=== PATIENT | male | born 1965 | race African-American/Black ===

== ENCOUNTER 2019-11-21 17:09 | Inpatient (IN) ==
[2019-11-21] MEDS ORDERED: ALBUTEROL NEB INH ONE (18:19)
[2019-11-21 18:28] LABS: URINE SOURCE CLEAN CATCH
[2019-11-21 18:37] LABS: BASO# 0.11 X1000 (0.0-0.2); EOS# 0.03 X1000 (0.0-0.7); EOS% 0.3 % (0.0-10.0); HEMATOCRIT 44.7 % (42.0-52.0); HEMOGLOBIN 14.6 g/dL (14.0-18.0); IMM GRAN# 0.93 X1000 (0.0-0.04); IMM GRAN% 8.3 % (0.0-0.5); LYMPH# 1.22 X1000 (1.2-3.4); LYMPH% 10.9 % (20.5-51.1); MCH 27.3 PG (27-31); MCHC 32.7 g/dL (33-37); MCV 83.6 FL (81-99); MONO# 0.81 X1000 (0.11-0.59); MONO% 7.2 % (1.7-9.3); MPV 9.5 FL (7.4-10.4); NEUT# 8.09 X1000 (1.4-6.5); NEUT% 72.3 % (42.2-75.2); PLT 162 X1000 (130-400); RBC 5.35 XMIL (4.7-6.1); RDW 17.3 % (11.5-14.5); WBC 11.19 X1000 (4.8-10.8)
[2019-11-21 18:37] LABS: BILIRUBIN URINE NEGATIVE (NEGATIVE); BLOOD URINE NEGATIVE (NEGATIVE); COLOR YELLOW; GLUCOSE URINE NEGATIVE (NEGATIVE); KETONE URINE NEGATIVE (NEGATIVE); LEUKOCYTES URINE SMALL (NEGATIVE); NITRITE URINE NEGATIVE (NEGATIVE); PH URINE 5.5; PROTEIN URINE TRACE mg/dL (NEGATIVE); SP GRAVITY URINE 1.027; TURBIDITY URINE HAZY (CLEAR); UROBILINOGEN URINE NORMAL (NORMAL)
[2019-11-21 18:38] LABS: UR EPITHELIAL CELLS <10 /HPF (<10); URINE BACTERIA NEGATIVE /HPF; URINE RBC <10 /HPF (<10); URINE WBC <10 /HPF (<10)
[2019-11-21 18:43] LABS: URINE CRYSTALS CA OXALATE PRESENT
--- NOTE | 2019-11-21 18:52 | Diag Imaging Result Doc PS360 ---
EXAM: CHEST-1 VIEW HISTORY: cough TECHNIQUE: Single view COMPARISON: 06/13/2018 FINDINGS: The lungs are well expanded. The heart is not enlarged. The vessels are not distended. There are right middle lobe infiltrates. No effusion identified. IMPRESSION: Small right middle lobe infiltrates Electronically signed by Abdias Larry 11/21/2019 6:50 PM
[2019-11-21 18:58] LABS: AGAP 14; ALB/GLOB RATIO 1.8; ALBUMIN 3.9 g/dL (3.5-5.0); ALKALINE PHOSPHATASE 57 U/L (32-122); BUN 31 mg/dL (8-22); CALCIUM 9.1 mg/dL (8.8-10.2); CHLORIDE 105 mmol/L (98-107); COSMO 288; CREATININE 0.7 mg/dL (0.7-1.2); ESTIMATED GFR > 60; GLUCOSE 111 mg/dL (70-104); GOT 16 U/L (10-34); GPT 41 U/L (10-44); POTASSIUM 4.4 mmol/L (3.5-5.1); SODIUM 141 mmol/L (136-145); TCO2 22 mmol/L (25-35); TOTAL PROTEIN 6.1 g/dL (6.3-8.3)
[2019-11-21] MEDS ORDERED: LEVAQUIN 750 MG/D5W 750 MG/150 ML IVPB IV ONE (19:44)
[2019-11-21] MEDS ORDERED: NS 1,000 ML IV ONE (19:56)
[2019-11-21] MEDS ORDERED: DECADRON IV ONE (19:56)
--- NOTE | 2019-11-21 19:56 | PROVIDER DOCUMENTATION ---
This chart was entered by Michaela Ron Scribe, acting as scribe for oDmingo Winchester MD. HPI-Syncope/Dizziness - General Chief Complaint: Dizziness Stated Complaint: DIZZINESS Time Seen by Provider: 11/21/19 18:17 Source: patient, EMS Allergies/Adverse Reactions: Patient Allergies Allergy/AdvReac Type Severity Reaction Status Date / Time No Known Allergies Allergy Verified 07/05/18 12:32 Home Medications: Home Medication List Medication Instructions Recorded Confirmed Last Taken Type Amitriptyline HCl 25 mg PO QHS 11/21/19 11/21/19 Unknown History Amitriptyline HCl 50 mg PO QHS 11/21/19 11/21/19 Unknown History Amlodipine Besylate 5 mg PO DAILY 11/21/19 11/21/19 Unknown History Dexamethasone 2 mg PO BID 11/21/19 11/21/19 Unknown History LISINOpril [Prinivil] 20 mg PO DAILY 11/21/19 11/21/19 Unknown History Levetiracetam 500 mg PO BID 11/21/19 11/21/19 Unknown History Levofloxacin [Levaquin] 750 mg PO DAILY #7 tab 11/21/19 Unknown Rx Melatonin 3 mg PO HS PRN 11/21/19 11/21/19 Unknown History Methimazole [Tapazole] 15 mg PO DAILY 11/21/19 11/21/19 Unknown History Omeprazole [Prilosec] 20 mg PO DAILY 11/21/19 11/21/19 Unknown History Paroxetine HCl 40 mg PO DAILY 11/21/19 11/21/19 Unknown History - History of Present Illness-Syncope/Dizzy Nature of Presenting Problem: Pt is a 54 yom brought into the Ed by EMS with c/o of dizziness and generalized weakness. Pt recently had radiation treatment for brain cancer in [place] but has been discharged to home. Pt has a hx of left sided weakness. Pt's family wanted him assessed in ED. Pt is A&O x3 in ED. Onset/Duration: reports: abrupt, 24 hours ago Timing: reports: still present Symptoms prior to episode: reports: lightheaded Context: reports: felt faint Loss of Consciousness: no loss of consciousness Location of injury. (If syncope resulted in an injury.): reports: none Current Symptoms: reports: weakness, dizzy Recently Seen Here or By Another Healthcare Provider: Yes ([place] radiation treatment) - Dizziness Severity in ED: reports: mild Dizziness Related Current/Associated Symptoms: reports: dizzy Any recent trauma/injury?: reports: none Modifying Factors: improves with: changing position Patient usually:: reports: walks without assistance Review of Systems - Adult - REVIEW OF SYSTEMS - ADULT Constitutional: denies: chills, fever Eyes: reports: no symptoms reported Ears, Nose, Mouth & Throat: reports: no symptoms reported Cardiovascular: denies: chest pain, syncope Respiratory: denies: cough Gastrointestinal: reports: diarrhea, vomiting. denies: abdominal pain Genitourinary: reports: no symptoms reported Musculoskeletal: reports: no symptoms reported Integumentary: reports: no symptoms reported Neurological: reports: see HPI, dizziness/vertigo Psychiatric: reports: no symptoms reported Endocrine: reports: no symptoms reported Hematologic/Lymphatic: reports: no symptoms reported Allergic/Immunologic: reports: no symptoms reported All Other Systems: Reviewed and Negative Past History - Adult - PAST MEDICAL HISTORY-ADULT Review of Records: reports: Old Records Reviewed, Nursing Assessment Review, Medications Reviewed, Social history reviewed & non-contributory. Major Childhood Illnesses: reports: denies history Cardiovascular: reports: CHF, HTN Respiratory: reports: denies history Gastrointestinal: reports: denies history Obstetrical/Gynecological: reports: denies history Genitourinary: reports: denies history Musculoskeletal: reports: denies history Neurological: reports: other (cancer) Endocrine/Immune: reports: Diabetes Other Conditions: reports: denies history - IMMUNIZATION STATUS Childhood Immunizations: See Nurse Assessment Flu Vaccine: See Nurse Assessment - FAMILY HISTORY Family History: reviewed, not pertinent - SOCIAL HISTORY Smoking: cigarettes, greater than 1 pack/day Provider spent 3-5 mins advising pt. on dangers of tobacco.: Discussed manners to quit use, and f/u contacts for add'l counseling. Substance Use: denies Living Situation: family Physical Exam-General - PHYSICAL EXAM-ADULT Initial Vital Signs Reviewed: Yes - CONSTITUTIONAL General Appearance: appears well, alert, no apparent distress, thin - EYES Eyes: PERRL/EOMI, pink conjunctivae - HEAD, EARS, NOSE, MOUTH & THROAT HENMT: normocephalic/atraumatic, moist mucous membranes, normal ENT inspection - NECK Neck: non-tender, full range of motion, supple - RESPIRATORY Respiratory: chest non-tender, rhonchi (on expiration) - CARDIOVASCULAR Cardiovascular: normal peripheral pulses - GASTROINTESTINAL (ABDOMEN) Abdominal Exam: normal bowel sounds, non tender, soft - LYMPHATIC Lymphatic: no adenopathy - MUSCULOSKELETAL Back Exam: normal inspection, no CVA tenderness, no vertebral tenderness Extremity: non-tender, no pedal edema, no calf tenderness - SKIN Integumentary: normal color, normal turgor, warm/dry - NEUROLOGIC Neurologic: grossly normal - PSYCHIATRIC Psych/Mental Status: normal mood/affect, normal thought content, normal thought process, oriented x 3 Progress - PLAN OF CARE/RESULTS Progress/Plan/Lab Results: Vital Signs - 8 hr 11/21/19 17:09 11/21/19 17:22 11/21/19 18:00 Temperature 97.9 F 99.8 F H Pulse Rate 96 H 93 H Respiratory Rate 17 23 Blood Pressure 108/74 118/81 O2 Sat by Pulse Oximetry 96 98 11/21/19 18:32 11/21/19 19:00 Temperature Pulse Rate 91 H 95 H Respiratory Rate 18 13 Blood Pressure 117/80 O2 Sat by Pulse Oximetry 96 11/21/19 17:42 Influenza Screen - Final Nasopharyngeal 11/21/19 17:42 Group A Strep Rapid Antigen - Final Throat Laboratory Results - last 24 hr 11/21/19 11/21/19 11/21/19 17:46 17:46 17:46 WBC RBC Hgb Hct MCV MCH MCHC RDW Std Deviation Plt Count MPV Immature Gran % (Auto) Neut % (Auto) Lymph % (Auto) [place] % (Auto) Eos % (Auto) Baso % (Auto) Immature Gran # (Auto) Neut # (Auto) Lymph # (Auto) [place] # (Auto) Eos # (Auto) Baso # (Auto) Sodium 141 Potassium 4.4 Chloride 105 Carbon Dioxide 22 L Anion Gap 14 BUN 31 H Creatinine 0.7 Estimated GFR/1.73 m2 > 60 BUN/Creatinine Ratio 44 Glucose 111 H Calculated Osmolality 288 Calcium 9.1 Total Bilirubin 0.20 AST 16 ALT 41 Alkaline Phosphatase 57 Troponin T High Sens Cdz-S-Ickzqphygjo Pept 6 Total Protein 6.1 L Albumin 3.9 Globulin 2.2 Albumin/Globulin Ratio 1.8 Plasma Lactate 1.7 Urine Source Urine Color Urine Turbidity Urine pH Ur Specific [place] Urine Protein Ur Glucose (Stick) Ur Ketones (Stick) Urine Blood Urine Nitrite Urine Bilirubin Urobilinogen Dipstick Urine Leukocytes Urine WBC (Auto) Urine RBC (Auto) U Epithel Cells (Auto) Urine Bacteria (Auto) Urine Crystals Small Round Cells Urine Casts Urine Yeast-like Cells 11/21/19 11/21/19 11/21/19 17:46 17:46 17:52 WBC 11.19 H RBC 5.35 Hgb 14.6 Hct 44.7 MCV 83.6 MCH 27.3 MCHC 32.7 L RDW Std Deviation 17.3 H Plt Count 162 MPV 9.5 Immature Gran % (Auto) 8.3 H Neut % (Auto) 72.3 Lymph % (Auto) 10.9 L [place] % (Auto) 7.2 Eos % (Auto) 0.3 Baso % (Auto) 1.0 H Immature Gran # (Auto) 0.93 H Neut # (Auto) 8.09 H Lymph # (Auto) 1.22 [place] # (Auto) 0.81 H Eos # (Auto) 0.03 Baso # (Auto) 0.11 Sodium Potassium Chloride Carbon Dioxide Anion Gap BUN Creatinine Estimated GFR/1.73 m2 BUN/Creatinine Ratio Glucose Calculated Osmolality Calcium Total Bilirubin AST ALT Alkaline Phosphatase Troponin T High Sens 13 Dpb-M-Kayglurlrrx Pept Total Protein Albumin Globulin Albumin/Globulin Ratio Plasma Lactate Urine Source CLEAN CATCH Urine Color YELLOW Urine Turbidity HAZY Urine pH 5.5 Ur Specific [place] 1.027 Urine Protein TRACE A Ur Glucose (Stick) NEGATIVE Ur Ketones (Stick) NEGATIVE Urine Blood NEGATIVE Urine Nitrite NEGATIVE Urine Bilirubin NEGATIVE Urobilinogen Dipstick NORMAL Urine Leukocytes SMALL A Urine WBC (Auto) <10 Urine RBC (Auto) <10 U Epithel Cells (Auto) <10 Urine Bacteria (Auto) NEGATIVE Urine Crystals CA OXALATE PRESENT Small Round Cells Not Reportable Urine Casts Not Reportable Urine Yeast-like Cells Not Reportable Orders Category Date Time Status NEWS Score 2-4:Order NEWS Lactate Series NOW Care 11/21/19 18:19 Active Saline Loc NOW Care 11/21/19 18:19 Active CHEST-1 VIEW [RAD] Stat Exams 11/21/19 18:19 Completed CBC WITH ELECTRONIC DIFF [HEME] Stat Lab 11/21/19 17:46 Completed COMPREHENSIVE METABOLIC PANEL [CHEM] Stat Lab 11/21/19 17:46 Completed DIRECT STREP Stat Lab 11/21/19 17:42 Completed INFLUENZA SCREEN A/B Stat Lab 11/21/19 17:42 Completed LACTATE, PLASMA [CHEM] Lab 11/21/19 21:30 Uncollected LACTATE, PLASMA [CHEM] Lab 11/22/19 00:30 Uncollected LACTATE, PLASMA [CHEM] Q3H Lab 11/21/19 17:46 Completed PRO B-NATRIURETIC PEPTIDE Stat Lab 11/21/19 17:46 Completed TROPONIN T HIGH SENSITIVITY Stat Lab 11/21/19 17:46 Completed URINALYSIS W/POSS RFLX CULT [URINALYSIS] Stat Lab 11/21/19 17:52 Completed URINE CULTURE [RM] Routine Lab 11/21/19 17:52 Received URINE MANUAL MICROSCOPIC [URINALYSIS] Stat Lab 11/21/19 17:52 Completed Albuterol [Albuterol Neb] Med 11/21/19 18:19 Discontinued 2.5 mg INH NOW ONE Levaquin 750 mg/D5w IV Now Med 11/21/19 19:44 Ordered Levofloxacin 750 mg/D5w [Levaquin 750 mg/D5w] 750 mg in 150 ml IV NOW Aerosol Treatments Routine Oth 11/21/19 18:19 Completed Aerosol Treatments Stat Oth 11/21/19 18:19 Completed EKG [EKG] Stat Ther 11/21/19 18:19 Ordered Result Diagrams: 11/21/19 17:46 11/21/19 17:46 - XRAY 1 XRAY Study: Chest Impression: See EMR Report ( Department of Imaging Patient: CRISTINA WHITNEY EADM Date: 11/21/19MR#: [id number] : 1965[facility] [id number] Age/Sex: 54/MRoom/Bed: Loc: ED Ordering Physician: Domingo Winchester MD Family Physician: None,PCP Reason for Procedure: cough Signed EXAM: CHEST-1 VIEW HISTORY: cough TECHNIQUE: Single view COMPARISON: 06/13/2018 FINDINGS: The lungs are well expanded. The heart is not enlarged. The vessels are not distended. There are right middle lobe infiltrates. No effusion identified. IMPRESSION: Small right middle lobe infiltrates Electronically signed by Abdias Larry 11/21/2019 6:50 PM 11/21/19 1850 Interpreting Physician: Abdias Larry MD Dictated Date/Time: 11/21/19 1849 cc: Domingo Winchester MD; None,PCP) Departure - Departure Date of Disposition Decision: 11/21/19 Time of Disposition Decision: 19:52 DIAGNOSIS: Pneumonia, Brain cancer, Radiotherapy Disposition: HOME 01 Certified Medical Emergency: Emergent Condition: Stable Additional Instructions: ED Follow Up Instructions: You have been treated by a care provider in the Emergency Department. These instructions are being provided to you so you can have an understanding of how to care for yourself upon discharge. [facility] you are responsible for making arrangements for follow-up care by a physician of your choice. Take all prescribed medications as directed. Take your antibiotics, follow with your pmd for further management Return to the Emergency Department immediately for any new or worsening symptoms. You may call the Physician Referral phone number at [phone] to obtain a list of Physicians who are taking new patients. Prescriptions: Levofloxacin [Levaquin] 750 mg PO DAILY #7 tab Prescription Printed Referrals and Follow-Ups: None,PCP [Primary Care Provider] - Discharge Education: Community-Acquired Pneumonia, Adult, [id number] - Critical Care Note This patient required my direct & personal management of CC.: No Attestation - Physician/ SILAS Attestation Patient care was provided by Advanced Practice Provider:: No The physician spent face to face time with patient:: Yes Advanced Practice Provider documentation review:: Supervising physician onsite and consulted in the evaluation and care of this patient. The physician did have a face to face encounter with the patient. This chart was documented by the indicated scribe, (Michaela Ron, [place]) and accurately reflects the services I performed and decisions made by me, Domingo Winchester MD, as attested by the provider's signature.
--- NOTE | 2019-11-21 21:44 | EKG Report ---
Test Performed on : 11/21/2019 8:01:26 PM Test Reason : weakness Blood Pressure : / mmHG Vent. Rate : 078 BPM Atrial Rate : 078 BPM P-R Int : 164 ms QRS Dur : 084 ms QT Int : 364 ms P-R-T Axes : 048 -09 023 degrees QTc Int : 414 ms Normal sinus rhythm. Possible Left atrial enlargement Anterior infarct , age undetermined Abnormal ECG No previous ECGs available Unconfirmed Result
--- NOTE | 2019-11-21 23:05 | ED EKG INTERP ---
This chart was entered by Michaela Ron Scribe, acting as scribe for Domingo Winchester MD. EKG Interpretation - EKG Time of EKG reading by physician:: 20:00 EKG Read and Signed by:: Domingo Winchester Rate: 78 Rhythm: NSR [place]: normal Comments: possible left atrial enlargement; Anterior infarct, age undetermined Attestation - Physician/ SILAS Attestation Patient care was provided by Advanced Practice Provider:: No The physician spent face to face time with patient:: Yes Advanced Practice Provider documentation review:: Supervising physician onsite and consulted in the evaluation and care of this patient. The physician did have a face to face encounter with the patient. This chart was documented by the indicated scribe, (Michaela Ron Scribe) and accurately reflects the services I performed and decisions made by me, Domingo Winchester MD, as attested by the provider's signature.
--- NOTE | 2019-11-22 02:18 | HISTORY AND PHYSICAL ---
The patient is a 54 year old recently diagnosed with brain cancer Glioblastoma status post radiation therapy in [place], who presented to the ER with dizziness. Of note, patient was recently diagnosed with brain cancer Glioblastoma in [place] with left hemiplegia, was deemed not a good surgical candidate based on location of the tumor and came to [place] 2 days ago. It appears the plan for his follow up treatment is not clear to the family. He was seen by an oncologist in [place] and care needed to be transitioned to an oncologist in [facility] after relocating. He is yet to establish an oncologist service here in [place], but sister got home and realized that she could not take care of him because of his left hemiplegia due to the brain cancer and due to patient's weakness was brought to the ER. In the ER, his chest x-ray is suggestive of a right middle lobe infiltrate suggestive of aspiration pneumonia. His [place] patient records is not complete. As such, we will try to obtain request from the [facility] where he was treated to have a good idea of all treatments he received for the brain cancer, and the follow up plan for his treatment. I agree with documentation by the nurse practitioner. We will admit patient for right middle lobe pneumonia, likely aspiration pneumonia. Patient's records from [place] reveal patient has a history of dysphagia with plans to be on mechanical soft diet. We will continue his diet recommendation from [place]. We will start patient on IV Unasyn for treatment of suspected aspiration pneumonia. Patient will need to establish care with oncology service here in [place]. We will consult Oncology once his full records from [place] are available. Patient currently wants to be full code and patient's code status will need to be addressed during the hospitalization. Family states they are not able to take care of patient at home. As such, patient needs mcc placement and social media senior associate will be on board to work with family to see if [facility] care can be arranged for patient as well. I agree with the nurse practitioner's history and physical, orders and plan for the patient. See note for detailed history. [facility]
[2019-11-22] MEDS ORDERED: TYLENOL PO PRN (02:30)
[2019-11-22] MEDS ORDERED: ZOFRAN IV PRN (02:30)
[2019-11-22] MEDS: DUONEB (A & A) INH SCH ×6 (04:41→23:19)
[2019-11-22] MEDS: UNASYN 1.5 GM/NS 1.5 GM/50 ML IVPB IV SCH ×4 (05:23→20:58)
[2019-11-22] MEDS: HUMULIN R SUBQ SCH ×4 (06:25→20:59)
[2019-11-22] MEDS: PRILOSEC PO SCH (06:35)
[2019-11-22 07:21] LABS: BASO# 0.04 X1000 (0.0-0.2); BASO% 0.4 % (0.0-0.8); EOS# 0.02 X1000 (0.0-0.7); EOS% 0.2 % (0.0-10.0); HEMATOCRIT 44.2 % (42.0-52.0); HEMOGLOBIN 14.4 g/dL (14.0-18.0); IMM GRAN# 0.59 X1000 (0.0-0.04); IMM GRAN% 6.2 % (0.0-0.5); LYMPH# 0.99 X1000 (1.2-3.4); LYMPH% 10.4 % (20.5-51.1); MCH 27.1 PG (27-31); MCHC 32.6 g/dL (33-37); MCV 83.1 FL (81-99); MONO# 0.48 X1000 (0.11-0.59); MPV 9.2 FL (7.4-10.4); NEUT# 7.39 X1000 (1.4-6.5); NEUT% 77.8 % (42.2-75.2); PLT 148 X1000 (130-400); RBC 5.32 XMIL (4.7-6.1); RDW 16.6 % (11.5-14.5); WBC 9.51 X1000 (4.8-10.8)
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
[2019-11-22 07:39] LABS: LYMPHS 12 % (21-51); MONO 2 % (1-9); SEGS 80 % (42-75)
[2019-11-22 07:47] LABS: AGAP 14; BUN 20 mg/dL (8-22); CALCIUM 9.2 mg/dL (8.8-10.2); CHLORIDE 104 mmol/L (98-107); COSMO 283; CREATININE 0.6 mg/dL (0.7-1.2); ESTIMATED GFR > 60; GLUCOSE 110 mg/dL (70-104); POTASSIUM 4.3 mmol/L (3.5-5.1); SODIUM 140 mmol/L (136-145); TCO2 22 mmol/L (25-35)
[2019-11-22] MEDS: NORVASC PO SCH (08:39)
[2019-11-22] MEDS: TAPAZOLE PO SCH (08:39)
[2019-11-22] MEDS: PAXIL PO SCH (08:40)
[2019-11-22] MEDS: PRINIVIL PO SCH (08:40)
[2019-11-22] MEDS: KEPPRA PO SCH ×2 (08:40→20:58)
[2019-11-22] MEDS: DECADRON PO SCH ×2 (08:40→20:59)
[2019-11-22] MEDS: MYCOSTATIN SUSP PO SCH ×4 (08:41→20:58)
--- NOTE | 2019-11-22 13:27 | PROGRESS NOTE ---
DATE: 11/22/2019 Patient admitted with pneumonia and weakness. Patient with known glioblastoma with left-sided weakness related to that. Oxygenation is pretty good. No further fevers. Will continue antibiotics with Levaquin. Will get Physical Therapy to see him, and anticipate discharge to SNF Saturday or Saturday if he remains stable.
[2019-11-23] MEDS: UNASYN 1.5 GM/NS 1.5 GM/50 ML IVPB IV SCH ×2 (03:58→09:16)
[2019-11-23] MEDS: DUONEB (A & A) INH SCH ×6 (04:12→23:04)
[2019-11-23] MEDS: HUMULIN R SUBQ SCH ×4 (06:02→22:19)
[2019-11-23] MEDS: PRILOSEC PO SCH (06:35)
[2019-11-23 07:07] LABS: BASO# 0.04 X1000 (0.0-0.2); BASO% 0.5 % (0.0-0.8); EOS# 0.02 X1000 (0.0-0.7); EOS% 0.2 % (0.0-10.0); HEMATOCRIT 42.4 % (42.0-52.0); HEMOGLOBIN 13.9 g/dL (14.0-18.0); IMM GRAN% 4.6 % (0.0-0.5); LYMPH# 1.14 X1000 (1.2-3.4); LYMPH% 13.2 % (20.5-51.1); MCH 26.9 PG (27-31); MCHC 32.8 g/dL (33-37); MCV 82.2 FL (81-99); MONO# 0.77 X1000 (0.11-0.59); MONO% 8.9 % (1.7-9.3); MPV 8.9 FL (7.4-10.4); NEUT# 6.25 X1000 (1.4-6.5); NEUT% 72.6 % (42.2-75.2); PLT 156 X1000 (130-400); RBC 5.16 XMIL (4.7-6.1); RDW 16.6 % (11.5-14.5); WBC 8.62 X1000 (4.8-10.8)
[2019-11-23 07:25] LABS: AGAP 12; BUN 16 mg/dL (8-22); CALCIUM 9.1 mg/dL (8.8-10.2); CHLORIDE 100 mmol/L (98-107); COSMO 276; CREATININE 0.7 mg/dL (0.7-1.2); ESTIMATED GFR > 60; GLUCOSE 125 mg/dL (70-104); POTASSIUM 4.4 mmol/L (3.5-5.1); SODIUM 137 mmol/L (136-145); TCO2 25 mmol/L (25-35)
[2019-11-23 07:28] LABS: HEMOGLOBIN A1C 6.8 % (4.8-6.0)
[2019-11-23] MEDS: PAXIL PO SCH (09:15)
[2019-11-23] MEDS: KEPPRA PO SCH ×2 (09:15→22:19)
[2019-11-23] MEDS: PRINIVIL PO SCH (09:15)
[2019-11-23] MEDS: TAPAZOLE PO SCH (09:16)
[2019-11-23] MEDS: NORVASC PO SCH (09:16)
[2019-11-23] MEDS: LEVAQUIN PO SCH (09:16)
[2019-11-23] MEDS: DECADRON PO SCH ×2 (09:16→22:19)
[2019-11-23] MEDS: MYCOSTATIN SUSP PO SCH ×4 (09:16→22:19)
--- NOTE | 2019-11-23 14:09 | PROGRESS NOTE ---
DATE: 11/23/2019 INTERVAL HISTORY: Patient's respiratory status is approaching baseline. Still a little bit of cough but no further dyspnea. Remains globally weak. No new complaints. REVIEW OF SYSTEMS: Twelve point review of systems negative except as per interval history. LABS: WBC 8.6, hemoglobin 13.9, hematocrit 42.4, platelets 156,000. Sodium 137, potassium 4.4, BUN 16, creatinine 0.7, glucose 106 to 220. VITALS: T-max 98.4 degrees, pulse 73, respirations 15, blood pressure 99/58, O2 saturation 93% on room air. PHYSICAL EXAMINATION: General: No acute distress. Vitals: As above. HEENT: Normocephalic, atraumatic. Moist mucous membranes. No cervical adenopathy. Cardiovascular: Regular rate and rhythm. No murmurs noted. Pulmonary: Largely clear to auscultation bilaterally at this point. Abdomen: Soft, nontender, nondistended. Bowel sounds positive. Extremities: Peripheral pulses intact. No clubbing or cyanosis. Neurologic: Speech is clear. Pupils equal, round, reactive to light. No facial asymmetry. Still with fairly significant left-sided weakness, upper extremity greater than lower extremity. No new focal deficits. Psychiatric: Normal mood and affect. Awake, alert, and cooperative. ASSESSMENT AND PLAN: 1. Pneumonia, likely aspiration. The patient has a history of dysphagia secondary to his known glioblastoma but has been doing pretty well on a mechanical soft diet here, which is what was recommended on his last swallow study. Continue to monitor. Continue antibiotics with Levaquin. 2. Left-sided weakness and asthenia. Patient with chronic left-sided weakness related to his brain mass but also with generalized weakness on top of that. I anticipate him going to a intermediate facility on discharge, likely Saturday. 3. Glioblastoma multiforme. Patient with known glioblastoma multiforme. He was not a candidate for surgery. He follows with Dr. Manrique with oncology at [facility] in [place], [place]. He is status post radiation treatment and was supposed to start oral chemotherapy with Temodar in the near future. 4. Hypertension. Blood pressure has been normal here just on lisinopril. If the blood pressure drops any more, we actually may need to stop that but fairly stable right now so we will keep that going. 5. Diabetes. The patient is diabetic by history, not on any medications for it at home. A1c here is 6.8, so appears to be diet controlled at this point. We will monitor sugar. 6. Gastroesophageal reflux disease. Continue home Prilosec.
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
[2019-11-24] MEDS: DUONEB (A & A) INH SCH ×6 (03:15→23:10)
[2019-11-24] MEDS: PRILOSEC PO SCH (06:21)
[2019-11-24] MEDS: HUMULIN R SUBQ SCH ×4 (06:22→21:59)
[2019-11-24 06:35] LABS: BASO# 0.02 X1000 (0.0-0.2); BASO% 0.3 % (0.0-0.8); EOS# 0.02 X1000 (0.0-0.7); EOS% 0.3 % (0.0-10.0); HEMATOCRIT 42.9 % (42.0-52.0); HEMOGLOBIN 13.9 g/dL (14.0-18.0); IMM GRAN# 0.32 X1000 (0.0-0.04); IMM GRAN% 4.1 % (0.0-0.5); LYMPH# 1.09 X1000 (1.2-3.4); MCH 26.8 PG (27-31); MCHC 32.4 g/dL (33-37); MCV 82.8 FL (81-99); MONO# 0.45 X1000 (0.11-0.59); MONO% 5.8 % (1.7-9.3); MPV 9.1 FL (7.4-10.4); NEUT# 5.87 X1000 (1.4-6.5); NEUT% 75.5 % (42.2-75.2); PLT 152 X1000 (130-400); RBC 5.18 XMIL (4.7-6.1); RDW 16.9 % (11.5-14.5); WBC 7.77 X1000 (4.8-10.8)
[2019-11-24 06:57] LABS: AGAP 13; BUN 16 mg/dL (8-22); CHLORIDE 100 mmol/L (98-107); COSMO 277; CREATININE 0.7 mg/dL (0.7-1.2); ESTIMATED GFR > 60; GLUCOSE 162 mg/dL (70-104); SODIUM 136 mmol/L (136-145); TCO2 23 mmol/L (25-35)
[2019-11-24] MEDS: DECADRON PO SCH ×2 (09:31→22:00)
[2019-11-24] MEDS: KEPPRA PO SCH ×2 (09:31→22:00)
[2019-11-24] MEDS: TAPAZOLE PO SCH (09:32)
[2019-11-24] MEDS: PAXIL PO SCH (09:32)
[2019-11-24] MEDS: NORVASC PO SCH (09:32)
[2019-11-24] MEDS: LEVAQUIN PO SCH (09:32)
[2019-11-24] MEDS: MYCOSTATIN SUSP PO SCH ×4 (09:33→22:00)
[2019-11-24] MEDS: PRINIVIL PO SCH (09:33)
[2019-11-24] MEDS ORDERED: NS 1,000 ML IV ONE (13:00)
--- NOTE | 2019-11-24 14:48 | HEMO/ONC PROGRESS NOTE ---
DATE: 11/24/2019 SUBJECTIVE: Mr. De Souza denies any problems this morning. He states he feels okay. He denies any pain. He has been consulted by Dr. Dozier. He plans to go to a half-way facility. He has no complaints, had a good night's sleep. OBJECTIVE: Vital Signs: Temperature 98.6 degrees, pulse rate 105, respiratory rate 17, blood pressure 101/53, O2 saturation 94% on room air. The patient is in 0/10 pain. Physical Examination: General: The patient is in no acute distress. Cardiovascular: Regular rate and rhythm. Respiratory: Lung sounds are clear. Normal respiratory effort. Abdomen: Soft, nontender, nondistended. Bowel sounds are present. Neurological: Speech is clear. Left- sided weakness noted. Alert and cooperative. Laboratory: WBCs 7.77, hemoglobin 13.9, hematocrit 42.9, platelet count 152,000. ASSESSMENT AND PLAN: 1. Right middle lobe pneumonia. Aware. Continue medical management with intravenous antibiotics. The patient is fine to go to a half-way facility from our standpoint. 2. Glioblastoma. Dr. Dozier has been consulted and has seen the patient. She reports patient has completed radiation. He is going to SNF. We will see him after to discuss further management. 3. Left-sided weakness and gait abnormality. The patient is wheelchair-bound. He and his family have decided for him to go to a half-way facility, possibly this week. 4. Deep venous thrombosis prophylaxis. Keep the patient on sequential compression devices. Dictated by YEVGENIY Espinosa for Flakito Bae MD cc: Flakito Bae MD [facility]
--- NOTE | 2019-11-24 17:35 | PROGRESS NOTE ---
DATE: 11/24/2019 SUBJECTIVE: The patient has no major complaints. OBJECTIVE: Blood pressure 110/78, heart rate of 91, respiratory rate of 17, temperature of 98.6 degrees, 91 to 94 percent on room air. Cardiovascular: Regular rate and rhythm. Pulmonary: Bilateral breath sounds clear to auscultation. GI: Soft, nontender, nondistended. Bowel sounds were positive. He is complaining of a sore throat but I do not detect any oral candidiasis on exam. Laboratory Data: White count is 7, hemoglobin and hematocrit 13 and 42. Glucose 123. PROBLEM LIST: 1. Pneumonia, possible aspiration. Patient is doing okay on a mechanical soft diet. We will continue antibiotics. He is empirically on antibiotics which include Levaquin. If it is aspiration, we may need anaerobic coverage but clinically he seems improved. 2. Left-sided weakness. 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 Looking at going to a nursing home facility. 3. Glioblastoma multiforme. He is due for treatment with Temodar but he has not started that yet and it has not been approved for him yet. He is on radiation therapy. 4. Hypertension. Blood pressure is stable so we are going to watch it without any medications. 5. Type 2 diabetes, diet-controlled. DISPOSITION: We are going to continue to follow but anticipate discharge soon. Anticipate hopefully to half-way or SNF when available. Apparently, we are waiting to hear back on that but he is, I think, stable for discharge when a bed is available. cc: Efren Murrell MD
[2019-11-25] MEDS: DUONEB (A & A) INH SCH ×6 (03:57→23:51)
[2019-11-25] MEDS: HUMULIN R SUBQ SCH ×4 (06:11→22:39)
[2019-11-25] MEDS: PRILOSEC PO SCH (06:12)
[2019-11-25 06:52] LABS: BASO# 0.03 X1000 (0.0-0.2); BASO% 0.4 % (0.0-0.8); EOS# 0.07 X1000 (0.0-0.7); EOS% 0.8 % (0.0-10.0); HEMATOCRIT 41.7 % (42.0-52.0); HEMOGLOBIN 13.8 g/dL (14.0-18.0); IMM GRAN# 0.46 X1000 (0.0-0.04); IMM GRAN% 5.4 % (0.0-0.5); LYMPH# 1.52 X1000 (1.2-3.4); LYMPH% 17.9 % (20.5-51.1); MCH 27.5 PG (27-31); MCHC 33.1 g/dL (33-37); MCV 83.1 FL (81-99); MONO# 0.73 X1000 (0.11-0.59); MONO% 8.6 % (1.7-9.3); NEUT# 5.69 X1000 (1.4-6.5); NEUT% 66.9 % (42.2-75.2); PLT 149 X1000 (130-400); RBC 5.02 XMIL (4.7-6.1); RDW 16.9 % (11.5-14.5)
[2019-11-25 07:20] LABS: AGAP 11; BUN 19 mg/dL (8-22); CALCIUM 9.4 mg/dL (8.8-10.2); CHLORIDE 102 mmol/L (98-107); COSMO 279; CREATININE 0.7 mg/dL (0.7-1.2); ESTIMATED GFR > 60; GLUCOSE 115 mg/dL (70-104); POTASSIUM 4.3 mmol/L (3.5-5.1); SODIUM 138 mmol/L (136-145); TCO2 25 mmol/L (25-35)
--- NOTE | 2019-11-25 08:36 | CONSULTATION ---
DATE OF CONSULTATION: 11/24/2019 REQUESTING PHYSICIAN: Dr. Bae. REASON FOR CONSULTATION: Glioblastoma multiforme. HISTORY OF PRESENT ILLNESS: Mr. De Souza is a 54-year-old gentleman who was diagnosed with a glioblastoma multiforme in [place] earlier this year. He had only a biopsy. Because of the location of the tumor, he was unable to have any debulking surgery. He underwent a short course radiation therapy of 15 fractions. I am having trouble getting his actual radiation records but do have records from his hospital admissions there. I am assuming that he got the standard short-course radiation which is 40 Gy and 15 fractions. It is unclear whether or not he received Temodar concurrently but he was supposed to begin Temodar following radiation. Upon completing radiation on 11/12/2019, he moved to [place] and presented because of increasing problems with balance, to the hospital. I have been consulted by Dr. Bae to see if any additional radiation needs to be completed. PHYSICAL EXAMINATION: The patient is lying in bed, in no acute distress. He has significant left- sided weakness. ASSESSMENT/PLAN: At this time, there is no additional management from a radiation therapy standpoint. I will continue to try to get his actual radiation therapy records to confirm the dose documented in his hospital chart from [place]. I have discussed this with Dr. Bae. Given the patient's poor prognosis and performance status, I think hospice would be a reasonable option. The other option would be to start oral chemotherapy with Temodar and see how he does. I also recommend restaging with another MRI when the patient is able to do this. cc: Vicki Dozier MD
[2019-11-25] MEDS: LEVAQUIN PO SCH (09:29)
[2019-11-25] MEDS: PAXIL PO SCH (09:29)
[2019-11-25] MEDS: KEPPRA PO SCH ×2 (09:29→22:36)
[2019-11-25] MEDS: MYCOSTATIN SUSP PO SCH ×4 (09:29→22:36)
[2019-11-25] MEDS: DECADRON PO SCH ×2 (09:29→22:36)
[2019-11-25] MEDS: TAPAZOLE PO SCH (09:30)
[2019-11-25] MEDS: MBX SOLUTION MT PRN (09:34)
--- NOTE | 2019-11-25 16:59 | PROGRESS NOTE ---
DATE: 11/25/2019 SUBJECTIVE: The patient has no major complaints. OBJECTIVE: Vital Signs: Blood pressure 112/73, heart rate of 89, respiratory rate 18, temperature degrees 97.2, saturating 91% to 94% on room air. Cardiovascular: Regular rate and rhythm. Pulmonary: Bilateral breath sounds clear to auscultation. Gastrointestinal: Abdomen was soft, nontender, nondistended. Bowel sounds are positive. LABORATORY DATA: White count 8, hemoglobin and hematocrit 13 and 41. Platelets of 149,000. Basic was normal. PROBLEM LIST: 1. Pneumonia, possible aspiration. He is on Levaquin. His white count has resolved. He has no further fevers. Clearly feel like this is his primary diagnosis. 2. Left-sided hemiparesis associated with a glioblastoma. Plan is to go to rehab. He is status post XRT. He is not going to have any further therapy as far as radiation therapy per Radiation/Oncology. He is perhaps due for Temodar if that can be approved as an outpatient per Dr. Bae. 3. Hypertension is stable off medications. 4. Diabetes. Blood sugars are stable despite Decadron. DISPOSITION: We are looking at trying to get him to a facility for rehab. This patient does not have risk factors for COVID at this point and is stable for discharge. cc: Efren Murrell MD
[2019-11-25] MEDS: ELAVIL PO SCH (22:37)
[2019-11-26] MEDS: DUONEB (A & A) INH SCH ×6 (03:38→23:08)
[2019-11-26] MEDS: HUMULIN R SUBQ SCH ×4 (06:21→20:20)
[2019-11-26] MEDS: PRILOSEC PO SCH (06:29)
[2019-11-26] MEDS: MBX SOLUTION MT PRN (06:31)
[2019-11-26] MEDS: DECADRON PO SCH ×2 (08:46→22:07)
[2019-11-26] MEDS: LEVAQUIN PO SCH (08:46)
[2019-11-26] MEDS: TAPAZOLE PO SCH (08:46)
[2019-11-26] MEDS: KEPPRA PO SCH ×2 (08:46→22:07)
[2019-11-26] MEDS: PAXIL PO SCH (08:46)
[2019-11-26] MEDS: MYCOSTATIN SUSP PO SCH ×4 (08:46→22:07)
--- NOTE | 2019-11-26 16:39 | PROGRESS NOTE ---
DATE: 11/26/2019 SUBJECTIVE: He has no major complaints. Seems to be doing okay. OBJECTIVE: Vital signs: Blood pressure 121/71, heart rate 94, respiratory rate 16, temperature 98.2 degrees. Cardiovascular: Regular rate and rhythm. Pulmonary: Bilateral breath sounds. Clear to auscultation. GI: Soft, nontender, nondistended. Bowel sounds are positive. LABORATORY DATA: Nothing new today because his labs have been stable. PROBLEM LIST: 1. Possible aspiration-type pneumonia. He is on Levaquin. Clinically, he has improved, although he does not have clear anaerobic coverage but he seems to be okay on the Levaquin. 2. Hemiparesis associated with glioblastoma multiforme. He is status post XRT. There is no further indication for XRT. He will be a candidate for Temodar if it can be approved by his insurance and that will be done as an outpatient. 3. Hypertension is stable. 4. Blood sugars are also stable despite Decadron, which presumably is because of his brain cancer as well as the Keppra for seizure prophylaxis. 5. Disposition. I anticipate discharge when rehab bed is available. Apparently, that will be tomorrow. So we will continue to follow, but anticipate discharge tomorrow. cc: Efren Murrell MD
[2019-11-26] MEDS: ELAVIL PO SCH (22:07)
[2019-11-27] MEDS: DUONEB (A & A) INH SCH ×4 (03:39→15:09)
[2019-11-27] MEDS: PRILOSEC PO SCH (06:16)
[2019-11-27] MEDS: HUMULIN R SUBQ SCH ×2 (06:16→14:29)
[2019-11-27] MEDS: LEVAQUIN PO SCH (09:29)
[2019-11-27] MEDS: TAPAZOLE PO SCH (09:29)
[2019-11-27] MEDS: DECADRON PO SCH (09:29)
[2019-11-27] MEDS: PAXIL PO SCH (09:29)
[2019-11-27] MEDS: KEPPRA PO SCH (09:29)
[2019-11-27] MEDS: MYCOSTATIN SUSP PO SCH ×2 (09:29→13:50)
--- NOTE | 2019-11-27 10:55 | DISCHARGE SUMMARY ---
ADMISSION DATE: 11/22/2019 DISCHARGE DATE: 11/27/2019 Today, he has no major complaints. He seems to be doing okay. No major issues. He seems to be tolerating p.o. okay. His breathing is good. No fevers, no hypoxia, no struggling to breathe. Lungs are clear. So, felt to be stable for discharge today on Levaquin and complete his other medications. Rehab bed I guess apparently was not available yesterday but is available now. Other medications as described in previous discharge summary. cc: Efren Murrell MD
--- NOTE | 2019-11-27 11:24 | HEMO/ONC PROGRESS NOTE ---
DATE: 11/27/2019 SUBJECTIVE: Mr. De Souza is sitting up in bed after eating his breakfast. He denies any complaints. He states he feels okay. He is aware he is going to a fdc facility today. He has no complaints. He had a good night's sleep. He understands he will follow up with us in the clinic. OBJECTIVE: Vital Signs: Temperature 98.1 degrees, pulse rate 79, respiratory rate 18, blood pressure 123/79, O2 saturation 94% on room air. General: The patient appears in no acute distress. HEENT: Sclerae is anicteric. PERRLA. Oral mucosa is normal. Respiratory: Lung sounds clear. Normal respiratory effort. Cardiovascular: Regular rate and rhythm. Neurological: Patient is weak on the left side, otherwise alert and cooperative. LABORATORY: No labs drawn today. ASSESSMENT AND PLAN: 1. Right middle pneumonia. The patient is going to be discharged on Levaquin. Medical management will be continued at the fdc facility. 2. Glioblastoma. The patient has been consulted by Dr. Dozier. He has had all the radiation he can have. We will follow up with him in the clinic after his discharge to discuss further plans and therapy. 3. Hemiparesis associated with glioblastoma. The patient is wheelchair bound. He is going to a fdc facility for higher level of full-time care. Dictated by YEVGENIY Espinosa for Flakito Bae MD cc: Flakito Bae MD
[2019-11-27 11:32] VITALS: BP 125/80
[2019-11-27] MEDS ORDERED: DUONEB (A & A) ONE (11:52)
--- NOTE | 2019-11-27 12:39 | DISCHARGE SUMMARY ---
ADMISSION DATE: 11/22/2019 DISCHARGE DATE: 11/27/2019 PRIMARY CARE PHYSICIAN: None currently, but has been referred and assigned to YEVGENIY Drake but has not had his initial visit yet. CONSULTATIONS: Hematology. ADMISSION DIAGNOSES: 1. Right middle lobe pneumonia. 2. Recent diagnosis of glioblastoma in September 2019, status post 15 radiation treatments. 3. Left-sided weakness and gait abnormality. 4. Dysphagia. 5. Diabetes type 2. 6. Hypertension. 7. Hyperthyroidism. 8. Depression. 9. Oral candidiasis. DISCHARGE DIAGNOSES: 1. A possible aspiration-type pneumonia. 2. Hemiparesis associated with glioblastoma multiforme. 3. Hypertension, stable. 4. Diabetes type 2, stable blood sugars. SUMMARY OF FINDINGS: This is a 54-year-old -[place] male, who initially presented to the ER with complaints of dizziness and left-sided weakness with some gait abnormality, requires 2 person assist to go from sitting to standing. He was noted to have some mild leukocytosis with a white blood cell count of 11.19. He had been on some Decadron for cerebral edema. A chest x-ray showed a small right middle lobe infiltrate with possible aspiration pneumonia. He had been afebrile since arriving to the ER, was admitted, placed on IV antibiotics and aggressive pulmonary toilet, incentive spirometry, scheduled DuoNeb, and aspiration precautions. We consulted Physical Therapy. He had a previous swallowing evaluation and recommended to have a mechanical soft chopped textured diet. Hematology was consulted. He is tolerating his p.o. fluids. No fevers. No hypoxia and is felt stable for discharge today. DISCHARGE MEDICATIONS: Will include amitriptyline 50 mg p.o. at bedtime, dexamethasone 2 mg p.o. b.i.d., levetiracetam 500 mg p.o. b.i.d., Levaquin 750 mg p.o. daily x7 days, Tapazole 15 mg p.o. daily, omeprazole 20 mg p.o. daily, paroxetine 40 mg p.o. daily, FOLLOW UP: He will need to follow up with a primary care physician, which he has been assigned to YEVGENIY Drake once he returns from his rehab stay. He will also follow up with Oncology. TIME SPENT: This a 35 minute discharge. Dictated by YEVGENIY Schroeder for Efren Murrell MD cc: YEVGENIY Schroeder MD [facility]
== END 2019-11-27 15:43 | DRG 177 ==
LOC: SUPCPDRO → ED 17:09 → SUATTDRO 11-22 00:14 → 3N 11-22 00:14
PROVIDERS: ATTEND Internal Medicine